=== PATIENT | female | born 1985 | race Caucasian/White ===

== ENCOUNTER 2016-03-24 20:59 | Emergency (ER) | payer OTHER ==
[2016-03-24] MEDS ORDERED: NS 1,000 ML IV ONE ×2 (21:14→21:18)
[2016-03-24] MEDS ORDERED: HYDROmorphONE/DILAUDID 1 MG/ML SYR IVP ONE (21:18)
[2016-03-24] MEDS ORDERED: DEXAMETHASONE 10 MG/ML VIAL IVP ONE (21:18)
[2016-03-24] MEDS ORDERED: METOCLOPRAMIDE 10 MG/2 ML VIAL IVP ONE (21:18)
[2016-03-24] MEDS ORDERED: KETOROLAC 30 MG/1 ML SDV IVP ONE (21:18)
--- NOTE | 2016-03-24 21:21 | UCPHY ---
H & P Patient Type: Established Chief Complaint Nursing Narrative: headache x 3 days, feels like band around head. c/o vomiting Time Seen by Provider: 03/24/16 21:14 HPI/ROS: CHIEF COMPLAINT: Migraine HISTORY OF PRESENT ILLNESS: The patient is a 30-year-old female who comes to the Urgent Care complaining of a migraine headache. She states that she has them fairly commonly and typically takes Maxalt. This did not work for her this time. It is been present for 3 days. Usually it only last for few hours. The intensity is not worse than usual. It was not thunderclap in onset. She denies any trauma. No fevers or infections. She states that the symptoms she is having are common for her migraines. She does have photophobia and mild pain with extraocular movement. No hearing changes. No chest pain or shortness of breath. REVIEW OF SYSTEMS: Constitutional: denies: chills, fever, recent illness, recent injury EENTM: denies: blurred vision, double vision, nose congestion Respiratory: denies: cough, shortness of breath Cardiac: denies: chest pain, irregular heart rate, lightheadedness, palpitations Gastrointestinal/Abdominal: denies: abdominal pain, diarrhea, nausea, vomiting, blood streaked stools Genitourinary: denies: dysuria, frequency, hematuria, pain Musculoskeletal: denies: joint pain, muscle pain Skin: denies: lesions, rash, jaundice, bruising Neurological: See HPI denies: numbness, paresthesia, tingling, dizziness, weakness Hematologic/Lymphatic: denies: blood clots, easy bleeding, easy bruising Immunologic/allergic: denies: HIV/AIDS, transplant EXAM: GENERAL: Well-appearing, well-nourished and in no acute distress. HEAD: Atraumatic, normocephalic. EYES: Pupils equal round and reactive to light, extraocular movements intact, sclera anicteric, conjunctiva are normal. ENT: TMs normal, nares patent, oropharynx clear without exudates. Moist mucous membranes. NECK: Normal range of motion, supple without lymphadenopathy or JVD. LUNGS: Breath sounds clear to auscultation bilaterally and equal. No wheezes rales or rhonchi. HEART: Regular rate and rhythm without murmurs, rubs or gallops. ABDOMEN: Soft, nontender, normoactive bowel sounds. No guarding, no rebound. No masses appreciated. BACK: No CVA tenderness, no spinal tenderness, step-offs or deformities EXTREMITIES: Normal range of motion, no pitting or edema. No clubbing or cyanosis. NEUROLOGICAL: Cranial nerves II through XII grossly intact. Normal speech, normal gait. 5/5 strength, normal movement in all extremities, normal sensation PSYCH: Normal mood, normal affect. SKIN: Warm, dry, normal turgor, no visible rashes or lesions. Source: Patient - Personal History LMP (Females 10-55): 22-28 Days Ago Tetanus Vaccine Date: 2015 - Medical/Surgical History Hx Asthma: No Hx Chronic Respiratory Disease: No Hx Diabetes: No Hx Cardiac Disease: No Hx Renal Disease: No Hx Cirrhosis: No Hx Alcoholism: No Hx HIV/AIDS: No Hx Splenectomy or Spleen Trauma: No Other PMH: migraine - Family History Significant Family History: No pertinent family hx - Social History Smoking Status: Never smoked Alcohol Use: Sober Drug Use: None Constitutional: Initial Vital Signs Temperature (C) 36.8 C 03/24/16 21:05 Heart Rate 60 03/24/16 21:05 Respiratory Rate 16 03/24/16 21:05 Blood Pressure 133/80 H 03/24/16 21:05 O2 Sat (%) 98 03/24/16 21:05 O2 Delivery Mode Room Air Allergies/Adverse Reactions: No Known Allergies Allergy (Unverified 09/25/15 15:38) Home Medications: Medication Instructions Recorded Rizatriptan Benzoate [Maxalt] 5 - 10 mg PO Q2 PRN #10 09/25/15 Bcp 03/24/16 Metoclopramide [Reglan 10 mg tab 10 mg PO BID PRN #10 tab 03/24/16 (RX)] Medical Decision Making ED Course/Re-evaluation: 10:40 p.m. the patient is feeling completely better. She is asking for Reglan prescription. She has been hydrated. She and her boyfriend are eager to go home. They declined further workup or testing. Additional verbal discharge instructions given. Differential Diagnosis: Partial list of the Differential diagnosis considered include but were not limited to; migraine, tension headache and although unlikely based on the history and physical exam, I also considered hemorrhage, aneurysm, dissection, thrombus, trauma. I discussed these differential diagnoses and the plan with the patient as well as the usual and expected course. The patient understands that the diagnosis is provisional and that in medicine we are not always correct and that further workup is often warranted. Usual and customary warnings were given. All of the patient's questions were answered. The patient was instructed to return to the emergency department should the symptoms at all worsen or return, otherwise to followup with the physician as we discussed. - Data Points Medications Given: Discontinued Medications Dexamethasone (Decadron Injection) 10 mg IVP EDNOW ONE Stop: 03/24/16 21:19 Last Admin: 03/24/16 21:25 Dose: 10 mg Diphenhydramine HCl (Benadryl Injection) 25 mg IVP EDNOW ONE Stop: 03/24/16 21:19 Last Admin: 03/24/16 21:32 Dose: 25 mg Hydromorphone HCl (Dilaudid) 1 mg IVP EDNOW ONE Stop: 03/24/16 21:19 Last Admin: 03/24/16 21:32 Dose: 0.5 mg Sodium Chloride (Ns) 1,000 mls @ 0 mls/hr IV ONCE ONE PRN Reason: Wide Open Stop: 03/24/16 21:15 Last Admin: 03/24/16 22:16 Dose: 1,000 mls Sodium Chloride (Ns) 1,000 mls @ 0 mls/hr IV ONCE ONE PRN Reason: Wide Open Stop: 03/24/16 21:19 Last Admin: 03/24/16 21:30 Dose: 1,000 mls Ketorolac Tromethamine (Toradol) 30 mg IVP EDNOW ONE Stop: 03/24/16 21:19 Last Admin: 03/24/16 21:30 Dose: 30 mg Metoclopramide HCl (Reglan Injection) 10 mg IVP EDNOW ONE Stop: 03/24/16 21:19 Last Admin: 03/24/16 21:30 Dose: 10 mg Ondansetron HCl (Zofran Odt 4 Mg Prepack#2) 1 btl TAKEHOME EDNOW ONE Stop: 03/24/16 22:45 Last Admin: 03/24/16 22:48 Dose: 1 btl Departure - Departure Disposition: Home, Routine, Self-Care Clinical Impression: Migraine Qualifiers: Migraine type: unspecified Status migrainosus presence: without status migrainosus Intractability: not intractable Qualifier Code: (G43.909) Migraine, unspecified, not intractable, without status migrainosus Condition: Fair Instructions: Migraine Headache (ED) Referrals: Carmenza Quintero MEDICAL CUSTOMER SERVICE REPRESENTATIVE [Primary Care Provider] - As per Instructions Prescriptions: Metoclopramide [Reglan 10 mg tab (RX)] 10 mg PO BID PRN #10 tab PRN Reason: Headache - PQRS PQRS Measurement: Not applicable
[2016-03-24 22:16] VITALS: RESP 16; TEMP 98.2; O2SAT 98
[2016-03-24 22:33] VITALS: BP 114/73; PULSE 58
[2016-03-24] MEDS ORDERED: ONDANSETRON 4MG PREPACK#2 BTL TAKEHOME ONE (22:44)
== END 2016-03-24 22:59 | disposition home or self-care (01) ==
LOC: CED 20:59
DX: G43.909 Migraine, unspecified, not intractable, without status migrainosus (principal)
CPT/HCPCS: 96360-PO; 96361-PO; 96374-PO; 96375-PO; 99214-PO; G0463-PO; J1170; J1885; J2765